=== PATIENT | female | born 1955 | race Caucasian/White ===

== ENCOUNTER → 2017-02-26 | Outpatient (CLI) | payer OTHER ==
[~2017-02-26] MED LIST: OPTIRAY 320 IV PRN
--- NOTE | 2017-02-26 13:23 | DIAGNOSTIC IMAGING REPORT ---
CT SCAN OF THE ABDOMEN COMBO RENAL MASS PROTOCOL CLINICAL HISTORY: Renal mass. Back pain. COMPARISON STUDY: Abdominal CT dated 01/25/2016. Abdominal ultrasound dated 07/13/2015. TECHNIQUE: Before and following the IV administration of 94 cc of Optiray 320, CT scan of the abdomen is performed from the lung bases to the pelvic inlet utilizing the renal mass protocol. Images are reviewed in the axial, sagittal, and coronal planes. IV contrast was administered without complication. A dose lowering technique was utilized adhering to the principles of ALARA. CT DOSE: 1601.25 mGycm FINDINGS: Lung bases: The heart is top normal in size and without pericardial effusion. The lung bases are clear. Liver: The contrast-enhanced liver is normal in size, contour, and attenuation. There is no intrahepatic biliary ductal dilatation. The hepatic veins and portal veins are patent. A 9 mm cyst is noted in the right lobe adjacent to gallbladder fossa. Additional scattered subcentimeter hypodensities also likely represent cysts but are too small for definitive characterization. Gallbladder: Unremarkable. Spleen: Normal in size and attenuation. Pancreas: Unremarkable. Adrenal glands: Unremarkable. Kidneys: No renal calculi are identified on the unenhanced series. The contrast enhanced kidneys are normal in size and without hydronephrosis. The kidneys enhance and excrete symmetrically. No concerning/enhancing renal cortical mass is identified. There is an 11 mm fat attenuation lesion in the interpolar right kidney seen on postcontrast image #[id number]. This is typical appearance for a small angiomyolipoma. There is no evidence of urothelial lesion within the renal pelvis bilaterally or along the course of the ureters. Abdominal vasculature: The abdominal aorta is normal in course and caliber. Bowel: Visualized portions of the small bowel and colon are normal in course and caliber. The appendix is well-visualized and normal. Peritoneum: There is no intraperitoneal free air or abdominal ascites. There is a small fat-containing umbilical hernia. Lymphadenopathy: None. Skeletal structures: No lytic or blastic lesions are seen. IMPRESSION: 1. There are no acute infectious or inflammatory findings in the abdomen. 2. There is no concerning/enhancing renal cortical mass identified. 3. There is unchanged appearance of an 11 mm lesion in the interpolar right kidney. This demonstrates macroscopic fat and is typical appearance for a tiny angiomyolipoma. Electronically signed by: Dale Maldonado M.D. 02/26/2017 1:22 PM Dictated Date/Time: 02/26/2017 1:14 PM
== END | disposition home or self-care (01) ==
LOC: C.CTS 12:39
PROVIDERS: ATTEND Urology
DX: N28.89 Other specified disorders of kidney and ureter (principal)